=== PATIENT | male | born 1995 | race Two or more races ===

== ENCOUNTER 2020-08-19 12:24 | Emergency (ER) | payer SELFPAY ==
[~2020-08-19] VITALS: Ht 180.3 cm; Wt 84.0 kg
[2020-08-19 12:35] VITALS: BP 146/89
[2020-08-19] MEDS ORDERED: DEXAMETHASONE 4 MG TABLET PO STA (12:41)
[2020-08-19] MEDS ORDERED: DEXAMETHASONE 4 MG TABLET ONE ×2 (12:52→12:55)
[2020-08-19] MEDS ORDERED: PLEASE ENTER ALLERGIES MC SCH (13:30)
== END 2020-08-19 13:28 | disposition home or self-care (01) ==
LOC: ED 12:47
DX: J02.0 Streptococcal pharyngitis (principal)
CPT/HCPCS: 99283